=== PATIENT | male | born 1995 | race Caucasian/White ===

== ENCOUNTER 2016-09-20 19:11 | Inpatient (IN) | payer MEDICAID ==
[~2016-09-20] VITALS: Ht 180.3 cm; Wt 86.0 kg
--- NOTE | 2016-09-20 22:15 | NUR ---
Nurses Admission Note 20 year old voluntary male certified for admission X 5 days by the [facility]. Patient overdosed on 80 tabs of Tylenol PM after cutting both forearms and his neck. Patient sustained multiple lacerations many which required sutures bilaterally forearms. Dressings redone with telfa, bacitracin and paper tape, Siri wrap removed. Patient presented alert,cooperative with a constricted affect,depressed mood. Patient admitted to life long depression, anxiety with one previous attempt with "drinking too much and not caring". Patient denied alcohol abuse stating drinking socially with his roommates after work. Patient has a h/o 2 previous psychiatric hospitalizations at age 9 and 11 with multiple medications prescribed for him at that time. Patient reported no favorable reaction to any previous medications and hasn't taken medications since April 2011. Patient contracts for safety. His depression 03/12,anxiety 12/10. He refused sleep or medications for anxiety. Will maintain q 15min. checks for safety and support.
[2016-09-20] MEDS ORDERED: [UNRECOGNIZED DRUG - REMARK] (23:49)
--- NOTE | 2016-09-21 01:11 | NUR ---
Observations 1900 to 0700 Pt arrived on the floor at 22:15 and was able to complete the entire intake process. Pt went right to his room son as he was finished with the intake process and has remained there for the rest of the night. Pt first appeared asleep at 23:30 and was observed every 15 minutes through the night as directed.
[2016-09-21] MEDS ORDERED: Alum-Mag Hydrox-Simeth 30 mL Suspension PO PRN (01:40)
[2016-09-21] MEDS ORDERED: LORazepam 1 mg Tablet PO PRN (01:40)
[2016-09-21] MEDS ORDERED: Benzocaine-Menthol Lozenge 2/Pkg PO PRN (01:40)
[2016-09-21] MEDS ORDERED: Magnesium Hydroxide 10 mL Oral Concentration PO PRN (01:40)
--- NOTE | 2016-09-21 05:21 | NUR ---
11p-7a sleep Pt has remained asleep since 2329 with no noted distress or awakening per protocol checks. Total sleep 5.5+ hours.
[2016-09-21 10:27] VITALS: BP 121/58; PULSE 89; RESP 16
[2016-09-21] MEDS ORDERED: hydrOXYzine Pamoate 25 mg Capsule PO PRN (13:40)
--- NOTE | 2016-09-21 14:08 | NUR ---
Nursing Note [id number] Mood, Behavior, Wounds S/O: Pt ate 100% of breakfast & lunch. VS stable. Pt attended Community Meeting this morning. Pt showered this afternoon. Pt has multiple cuts on forearms. All wounds are well-approximated. Stitches are intact. Bacitracin & non-stick bandage reapplied to bilateral forearms. Pt rates his depression at a "1" on a scale of 1-10/10 the worst. He denies anxiety or suicidal ideation. Full affect. Conversation tracking clear & organized with normal rate & rhythm. Pt out in milieu with peers interacting appropriately. A: Pt has brighter affect. P: Pt needs better coping skills to manage effectively in the community. Monitor medications & effects.
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
[2016-09-21] MEDS: BusPIRone 15 mg Dividose Tablet PO SCH ×2 (14:17→20:41)
--- NOTE | 2016-09-21 17:12 | NUR ---
Observations 0700 to 1900 Pt maintained behavioral control throughout the shift. Pt is guarded, quiet, cooperative and friendly when approached but did not initiate interaction with peers or staff. Pt attended community meeting and refused to set goal--self rated mood at 9/10. Pt spent morning playing solitaire in dining room and did not respond when a female pt attempted to antagonize him. After lunch pt isolated to room and alternated sleeping and laying in bed for most of the afternoon. Pt ate 100% of breakfast and lunch and was observed every 15 minutes as ordered.
--- NOTE | 2016-09-22 05:18 | NUR ---
nursing, nights, 11-7 s/o- has appeared to sleep after 2114 during q 15 minute assessments. a- no apparent distress. p- monitor behavior/emotional state, quality, times and amount of sleep, use and effect of medication. mariana
[2016-09-22] MEDS: BusPIRone 15 mg Dividose Tablet PO SCH ×2 (08:15→21:15)
[2016-09-22 08:38] VITALS: BP 110/72; PULSE 90; RESP 16
--- NOTE | 2016-09-22 13:05 | NUR ---
Nursing Note [id number] Behavior, Mood S/O: Pt has good appetite. VS stable. Pt attending groups on unit. Full affect. Pt denies depression, anxiety & suicidal ideation. Pt out in milieu interacting appropriately with peers & staff. Pt able to make needs known. A: Pt has no coping skills to deal with stressors. P: Provide supportive environment. Monitor medications & effects. Teach coping skills.
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
--- NOTE | 2016-09-22 16:47 | NUR ---
Observations [id number] Pt was asleep upon start of shift. He attended Community Meeting as well as breakfast. Pt is friendly with peers and staff. He was observed playing [employer] in the dining area much of the morning. He engages in conversation with others when interacted with. Pt did attend group working on a project for his sister. He made a few phone calls in the afternoon, and shared with this typewriter ribbon winder his desire to get his cat from [place] to here. Pt attended all meals, eating 100%. He was observed every 15 minutes of shift as directed.
--- NOTE | 2016-09-22 20:24 | NUR ---
Nurses Note Evening Patient has been out going and social with peers. He stated his anxiety has improved as well as his depression with his medication. His appetite,hygiene and sleep patterns are undisturbed. Will maintain q 15min. checks for safety and support. Addendum: 09/22/16 at 2045 by KRISTIAN FREEMAN RN Amended: Links added.
--- NOTE | 2016-09-23 05:33 | NUR ---
nursing, nights, 11-7 s/o- has appeared to sleep after 2214 during q 15 minute assessments. a- no apparent distress. p- monitor behavior/emotional state, quality, times and amount of sleep, use and effect of medication. mariana
--- NOTE | 2016-09-23 06:12 | NUR ---
OBSERVATIONS 1900 TO 0700 Pt was pleasant and cooperative throughout the shift. Pt was social and appropriate with peers, playing cards, etc. Pt participated in evening wrap-up group stating that he felt he was productive throughout the day and rated his day and his mood an 8/10. Pt was recorded asleep 2230 and slept through the night aside from restlessness at 0045 and 0145. Maintained Q15 safety checks as directed.
[2016-09-23] MEDS: BusPIRone 15 mg Dividose Tablet PO SCH ×2 (08:02→20:42)
[2016-09-23 08:45] VITALS: BP 125/83; PULSE 83; RESP 16
--- NOTE | 2016-09-23 12:15 | NUR ---
Nursing notes Dayshift S: "Feeling good today." O:. Pt is polite, calm and cooperative. Pt. has participated with group and interacting with staff and other patients. Pt denies having any suicidal ideations today. Pt feels safe today. A: Pt has BL forearm wounds, left forearm has 24 sutures, with several superficial cuts, cleaned wound, dressed wound and covered with netting sleeve. Right arm has 14 sutures intact with several superficial incisions with varying healing stages, dressing changed, wounds cleaned, netting sleeve applied. P: Monitor for safety and response to treatment. Follow plan of care for safety/response to treatment.
--- NOTE | 2016-09-23 13:43 | PROG NOTE ---
[address] [address] PROGRESS NOTE PATIENT: JATINDER SMITH : 1995 MR#: [id number] ADMIT: 09/20/2016 JOB ID: [id number] DATE: 09/23/2016 CHIEF COMPLAINT: "I am having a very good morning." This is per patient report. HISTORY OF THE PRESENT ILLNESS: As stated above, the patient did identify that he had positive conversations with his father and aunt who reside in [place]. He indicates that, however, he was struggling with interaction with his uncle who is his primary local support due to the fact that he really feels that he cannot rely on him or talk to him about his own personal struggles with the recent suicide attempt. He indicates that he knows that his uncle feels overwhelmed with his status of suicide and is near completion. The patient readily identified that he is struggling with developing a safety plan at this time post discharge, and I have discussed that, ELLIE, the case packer, will be coordinating aftercare, including outpatient individual therapy and continuation of medication management. He effectively identified that if he were to experience suicidal thoughts in the future that he would struggle with who he should contact. I have encouraged him to develop a list of support personnel that he can contact via text message, telephone calls, including his father and aunt, and also crisis line numbers. OBJECTIVE: On mental status exam, he makes good eye contact. His level of anxiety has significantly improved per his own report, but much of this is related to this safety of the hospital setting. He becomes quite anxious in discussion of discharge. His mood is anxious. His affect is congruent. His thought process shows no evidence of racing thoughts, flight of ideas, loose or disconnected thinking. Thought content: He denied any evidence of current suicidal ideation, intent, or plan. He could not verify a safety plan post discharge. No evidence of homicidal ideation. No evidence of active hallucinations, delusions. He was alert, oriented to time and place. Attention and concentration intact. Memory intact in the short term, termite inspector, recent. Insight and judgment are fair. PHYSICAL EXAM: Vital signs are unlisted for today. MEDICATION REVIEW: Includes: 1. BuSpar 15 mg b.i.d. 2. Trazodone 100 mg q.h.s. ASSESSMENT: AXIS I: 1. Generalized anxiety disorder. 2. Social phobia. 3. Major depressive disorder, recurrent type, nonpsychotic, severe. AXIS II: Avoidant personality features. AXIS III: Status post bilateral lacerations of forearms and Tylenol overdose. AXIS IV: Stressors are noted for transition of life, limited social support. AXIS V: Global Assessment of Functioning of current 30. PLAN: 1. Recommendations for titration of BuSpar to 30 mg b.i.d. 2. Recommended discharge on Monday with aftercare including individual therapy, medication management. 3. Continuation of trazodone 100 mg q.h.s. for sleep disturbance.
--- NOTE | 2016-09-23 17:57 | NUR ---
[facility] Day Shift Pt maintained behavioral control throughout the shift. Pt affect appears mostly euthymic. Pt spends most of the shift interacting with peers and watching TV/reading in the dining room and participating in unit activities. Pt is pleasant with staff and peers when active on the unit. Pt attended community meeting in the AM and participated in group activities throughout the shift. Pt attended all meals and ate approx 100% of all meals.
--- NOTE | 2016-09-23 19:20 | NUR ---
Instrument [employer] Control Service Person/Counselor: S: "I'm having a very good morning." O: Patient slept 8+ hours last night as per staff. She denies S/I and H/I. She denies auditory and visual hallucinations. This tech writer gave patient an anxiety work package. A: Patient is cooperative, anxious, hopeful, fair insight, fair judgment. P: Follow your care plan, coordinate out-patient providers.
--- NOTE | 2016-09-23 22:07 | NUR ---
NURSING NOTE [id number] Mood: "pretty good" Affect: pleasant, calm, cooperative Behavior: pt. out in milieu most of the evening. He attended rec group and wrap-up group. Chatted w/peers. Watched a movie w/peers at . Took a shower and this food writer applied dressings to his forearms, bilaterally. Med compliant. Thought processes: logical, linear, expressed readiness to discharge Monday and expressed he feels he will be safe going forward and has plans and supports in place for safety on the outside. No SI/HI. Denied anxiety and depression.
--- NOTE | 2016-09-24 04:59 | NUR ---
NURSING Note Noc Pt asleep upon arrival to unit. Noted sleep time 2315 with 6 hrs plus of uninterrupted sleep. No PRN's given, Q15 min safety checks done per protocol, no distress noted. WCTM sleep, safety, behavior
[2016-09-24 07:47] VITALS: BP 117/70; PULSE 80; RESP 16
[2016-09-24] MEDS: BusPIRone 15 mg Dividose Tablet PO SCH ×2 (08:17→21:12)
--- NOTE | 2016-09-24 11:05 | NUR ---
Nursing Day Shift- S- "I'm going back to [place] to visit in October. I like the weather in [place] better. I'm going to give it a year, then decide if I want to move back." O- Pt. had slept 7.5 hours per report. He was awake and dressed for breakfast. He reported feeling calmer and more at peace since his admission. He denied suicidal thoughts, and spoke of future plans. No PRN medications requested. Pt's dressings over his forearm lacerations were dry and intact. No follow up wound instructions from [facility] in patient belongings. A- Depression lessening. Sutures placed 7 days ago. P- Cont. TP
--- NOTE | 2016-09-24 14:15 | PROG NOTE ---
[address] [address] PROGRESS NOTE PATIENT: JATINDER SMITH : 1995 MR#: [id number] ADMIT: 09/20/2016 JOB ID: [id number] DATE: 09/24/2016 CHIEF COMPLAINT: "I think I'm doing a lot better. I have learned a lot, and I know it is important to be needed by my family." HISTORY OF PRESENT ILLNESS: As stated above, the patient has gained significant insight into alternative coping skills and also reasons for his life. He identified that he had a very positive conversation with his aunt last evening and also has received significant outpouring of support from various additional family members including his cousin. He reports that he is much more optimistic about his life and realizes that he needs to take part in their lives as well. He identified the importance of feeling needed. OBJECTIVE: On mental status examination, he was cooperative, polite. He became tearful in discussing his conversation with his aunt but was much more appropriate and willing to communicate. His mood was neutral. His affect was congruent. His thought process showed no evidence of racing thoughts, flight of ideas, loose or disconnected thinking. Thought content: He denied any evidence of current suicidal, homicidal ideation. He was alert, oriented to person, place, time, situation. His attention and concentration were intact. Memory intact in the short term, long-term, recent. Insight and judgment are gaining. PHYSICAL EXAM: Vital signs of current. Temperature is 36.5, pulse 80, respirations 16, BP 117/70. MEDICATION REVIEW: Includes BuSpar 30 mg b.i.d. ASSESSMENT: AXIS I 1. Generalized anxiety disorder. 2. Social phobia. 3. Major depressive disorder, recurrent type, nonpsychotic, severe. AXIS II Avoidant personality features. AXIS III 1. Status post Tylenol overdose. 2. Bilateral laceration of forearms. AXIS IV Stressors are noted for transition of life, limited social support. AXIS V Global assessment of functioning of current 35. PLANS: 1. Recommendations for continuation of all medications noted. 2. Recommendations for discharge on Monday for continuation of aftercare followups.
--- NOTE | 2016-09-24 21:42 | NUR ---
NURSING NOTE [id number] Mood: "alright" Affect: pleasant, calm, cooperative Behavior: attended rec group, social w/peers, attended wrap-up group, watched a movie in evening w/peers Thought processes: denies any issues this evening, denies SI/HI. Futuristic and motivated for discharge.
--- NOTE | 2016-09-25 03:42 | NUR ---
Observations 1900 to 0700 Pt watched movies all night until he went to bed.Pt was polite and cooperative. Pt first appeared asleep at 22:30 and was observed every 15 minutes through the night as directed.
--- NOTE | 2016-09-25 06:27 | NUR ---
Sleep 11p-7a Adequate sleep through the night with no noted distress or awakening per protocol checks. Total sleep over 8 hours.
[2016-09-25] MEDS: BusPIRone 15 mg Dividose Tablet PO SCH ×2 (07:55→21:12)
[2016-09-25 08:20] VITALS: BP 124/78; PULSE 100; RESP 16
--- NOTE | 2016-09-25 10:26 | NUR ---
Health And Safety Consultant./ c.m. S.:"I'm doing pretty good." O.: met with pt. to discuss his discharge plan. He "slept well" last night. He denied SI/HI, denied AH/VH or paranoid/delusional thoughts. He rated depression at 1/10 and anxiety at 2/10. He agreed to work on his Safety plan. 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 He was in and out of his room talking to selective peers. A.: pt. is cooperative, pleasant, has a bright affect, social with peers. P.: monitor behavior, check Safety plan; follow care plan.
--- NOTE | 2016-09-25 13:10 | NUR ---
nursing note 7am-7pm S)"I am feeling much better" O) pt reports anxiety 07/12, believes that the medication is working, anticipating DC tomorrow, dressing on incisions changed, will have [facility] remove stitches after DC, ate meals, dressed in scrubs, affect bright with good eye contact and smile on approach, denies any SI A)improved, cooperative with medication, decreased anxiety P)monitor effectiveness of medications and encourage participation in treatment
--- NOTE | 2016-09-25 16:47 | NUR ---
Observations 0900 to 1900 Pt affect and mood was bright, content, friendly and hopeful. Pt speech and eye contact was good. Pt was out in [place] and group room most of the day. Pt was social with staff and select peers when approached. Pt attended meals in D.R. and ate approximately 75% of her meals. Pt maintained behavior throughout the shift. Pt was polite, pleasant and cooperative. Pt attended group and unit activities. Pt watched TV and movie with peer. Pt was observed every 15 minutes throughout the shift as ordered.
--- NOTE | 2016-09-25 18:56 | PROG NOTE ---
[address] [address] PROGRESS NOTE PATIENT: JATINDER SMITH : 1995 MR#: [id number] ADMIT: 09/20/2016 JOB ID: [id number] DATE: 09/25/2016 CHIEF COMPLAINT: "I did talk with my uncle two days ago, left a message for him yesterday. I am going to try and get ahold of them again today." This is per patient report. HISTORY OF PRESENT ILLNESS: As stated above, the patient openly identified that he was not able to get ahold of his uncle yesterday to schedule picker feeder for discharge tomorrow. He indicates that he continues to work on various skills-based approach for dealing with his factors of anxiety. He states that he is very optimistic about the future and stated that his depression and anxiety remain very low. He indicates that he is willing to continue with recommendations of outpatient individual therapy, medication management. MENTAL STATUS EXAM: He was bright, cooperative, interactive. He denied any evidence of acute distress. He maintained good eye contact throughout and appeared to be very valid in his presentation. His speech was of normal tone, frequency, and volume. His mood is neutral. Affect is congruent. Thought process showed no evidence of racing thoughts, flight of ideas, loose or disconnected thinking. Thought content: He denied any evidence of current suicidal, homicidal ideation. No evidence of active hallucinations, delusions. He was alert, oriented to time and place. Attention and concentration intact. 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 Insight and judgment are gaining. PHYSICAL EXAM: Vital signs of current, temperature is 36.5, pulse 80, respirations 16, BP 117/70. MEDICATION REVIEW: 1. BuSpar 30 mg b.i.d. 2. Trazodone 100 mg q.h.s. 3. Vistaril p.r.n. ASSESSMENT: [place] I1. Major depressive disorder, recurrent type, severe, nonpsychotic. 2. Generalized anxiety disorder. 3. Panic disorder without agoraphobia. [place] IIDeferred. [place] III [place] IVStressors are noted for life transition. [place] VGlobal assessment of functioning current 35. PLAN: 1. Recommendations to discharge with outpatient followup tomorrow. 2. Continuation of all medications noted.
--- NOTE | 2016-09-26 05:07 | NUR ---
Nursing Noc Pt bright, pleasant and social on the unit. He spent the evening out in the milieu participating in evening activities. He took scheduled medication without difficulty. He received Vistaril 50mg po prn @ 2112 for c/o itching along healing stitches on both forearms. Adequate sleep through the night with no noted distress or awakening per protocol checks. Total sleep over 7.5 hours.
[2016-09-26] MEDS: BusPIRone 15 mg Dividose Tablet PO SCH (08:48)
--- NOTE | 2016-09-26 08:51 | NUR ---
Dandy Tender./c.m. S.:"I'm feeling good." O.: met with pt. to confirm his discharge plan. Pt. completed Safety plan. He called his uncle and left "a couple of messages" regarding time of discharge. Pt. slept well last night. He denied SI/HI, denied AH/VH or paranoid/delusional thoughts. He has intake appt. for mental health services tomorrow, September 27 @ 9:00 am at [facility] in [place] [facility] ([phone]). His uncle will come to pick him up. A.: pt. is cooperative, pleasant, quiet. P.: monitor behavior, follow care plan.
--- NOTE | 2016-09-26 08:55 | PCM.DIMED ---
Discharge Instructions Date of Service Sep 26, 2016 Dates of Hospitalization Sep 20, 2016 at 22:25 Discharge Diagnosis Discharge Diagnosis Major Depression Recurrent nonpsychotic Generalized Anxiety DO Panic DO without agoraphobia Social Phobia Diet No restrictions Activity No restrictions Cale Quintana DO Sep 26, 2016 08:55
[2016-09-26] MEDS ORDERED: BUSP15TA3 PO (08:56)
[2016-09-26 10:44] VITALS: BP 145/88; PULSE 108; RESP 16
--- NOTE | 2016-09-26 14:48 | NUR ---
Wound Care orders received to assess right and left wrist lacerations for removal of sutures. Wound edges are well approximated at three lacerations of left volar wrist/forearm and right 2 lacerations of volar wrist. There is no drainage noted at any of these lacerations and minimal erythema at edges which would be expected with normal healing progression. Sutures were removed, redressed with bandaids,conform and surgilast to right wrist and adhesive foam dressing, conform and surgilast over left wrist. Patient is expected to be discharged today,stable healing primarily closed lacerations, no follow up necessary.
--- NOTE | 2016-09-26 17:04 | DIS ---
[address] [address] DISCHARGE SUMMARY PATIENT: JATINDER SMITH : 1995 MR#: [id number] ADMIT: 09/20/2016 JOB ID: [id number] DIS: 09/26/2016 ADMITTING DIAGNOSES: AXIS I 1. Generalized anxiety disorder. 2. Social phobia. 3. Major depressive disorder, recurrent type, nonpsychotic. 4. Cannabis use disorder, chronic. 5. Alcohol use disorder in a controlled environment. AXIS II Deferred. AXIS III 1. Status post overdose of Tylenol. 2. Bilateral lacerations to both forearms. AXIS IV Stressors are noted for financial distress, life transition. AXIS V Global assessment of functioning of current 30. DISCHARGE DIAGNOSES: AXIS I 1. Generalized anxiety disorder. 2. Social phobia. 3. Major depressive disorder, recurrent type, nonpsychotic. 4. Cannabis use disorder, chronic. 5. Alcohol use disorder in a controlled environment. AXIS II Deferred. AXIS III 1. Status post overdose of Tylenol. 2. Bilateral lacerations to both forearms. AXIS IV Stressors are noted for financial distress, life transition. AXIS V Global assessment of functioning of current 50. REASON FOR ADMISSION: The patient was a 20-year-old male admitted following significant suicide attempt on a voluntary basis from [facility] emergency department in [place]. The patient reportedly had taken 80 tablets of Tylenol PM and laceration through bilateral wrists. During the course of hospitalization, the patient openly identified a chronic history of struggles with anxiety, panic attacks, and social phobia. He reported recent transition from the [facility] to live with his cousins in stating that he was hoping that it was going to be a positive transition. He notes that over the past month, however, he was feeling increasingly hopeless and recently lost his job. During the course of hospitalization, the patient was willing to initiate medication treatment including BuSpar, eventually titrated to 30 mg b.i.d. He reported that he had several positive interactions with his family members and realized that it was important for him to begin taking care of himself. Throughout hospital course, the patient participated in both individual and group therapy complements with gains of insight into alternative coping. He denied any evidence of recurrent suicidal thoughts and openly identified significant remorse about his previous attempt. CONDITION AT TIME OF DISCHARGE: On the patient's mental status examination, he was bright, cooperative, interactive. He maintained good eye contact throughout. His speech was of normal tone, frequency and volume. His mood was neutral. Affect was congruent. His thought process showed no evidence of racing thoughts, flight of ideas, loose or disconnected thinking. Thought content: He denied any evidence of current suicidal or homicidal ideation. No evidence of hallucinations, delusions. He was alert, oriented to time and place. Attention and concentration intact. Memory intact in the short term, assisted, recent. Insight and judgment are fair. DISCHARGE PLANS: Include: 1. Continuation of BuSpar 30 mg b.i.d., one month supply, no refills. Reason for usage: Anti-anxiety. 2. Recommendations for follow up care including outpatient intake with [facility] scheduled on September 27 at 9 a.m. 3. Recommendations for continuance of a clean and sober lifestyle, highly encouraged based on the patient's significant overlapping factors of depression and anxiety.
--- NOTE | 2016-09-26 17:56 | NUR ---
Nursing: Day shift and Discharge Elias was out on the open unit most of the day. He showed designer/writer his forearm wounds and they look clean dry and intact. Wound care visited pt, assessed wounds, changed dressings, and removed the sutures. Elias denied depression, suicidal intent or anxiety. 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 All outcomes met. Lef unit accompanied by at 1605. Addendum: 09/26/16 at 1805 by OSIRIS GARCIA RN Amended: Links added.
== END 2016-09-26 16:05 | disposition home or self-care (01) | DRG 880 ==
LOC: MHC 22:25
PROVIDERS: ADMIT Psychiatry & Neurology Psychiatry; ATTEND Psychiatry & Neurology Psychiatry
DX: F41.1 Generalized anxiety disorder (principal); F33.9 Major depressive disorder, recurrent, unspecified; F41.0 Panic disorder [episodic paroxysmal anxiety]; F12.90 Cannabis use, unspecified, uncomplicated; F40.10 Social phobia, unspecified; Z91.5 Personal history of self-harm